=== PATIENT | female | born 1945 | race Caucasian/White ===

== ENCOUNTER 2021-01-24 13:07 | Inpatient (IN) | payer OTHER, SELFPAY ==
[~2021-01-24] VITALS: Ht 162.6 cm; Wt 58.1 kg
[2021-01-24 13:15] VITALS: BP_SYST 129
--- NOTE | 2021-01-24 13:15 | NUR ---
PT TO BED 3 FOR EVALUATION.
--- NOTE | 2021-01-24 13:20 | NUR ---
Pt bib EMS from home with c/o n/v and generalized weakness x4 days. Denies any fever, SOB or chest pain at this time. V/S stable, no acute distress noted.
--- NOTE | 2021-01-24 13:30 | NUR ---
ER Dr. Luther at bedside examining patient.
--- NOTE | 2021-01-24 14:30 | NUR ---
Lab at bedside for blood draw.
[2021-01-24 14:54] LABS: BASOPHILS # (AUTO) 0.1 K/uL (0.0-0.2); BASOPHILS % (AUTO) 0.5 % (0.0-2.0); HEMOGLOBIN 14.3 g/dL (12.0-16.0); LYMPHOCYTES # (AUTO) 0.5 K/uL (1.0-5.5); LYMPHOCYTES % (AUTO) 4.2 % (20.5-51.5); MEAN CORPUSCULAR HEMOGLOBIN 30 pg (27-31); MEAN CORPUSCULAR HGB CONC 34 % (32-36); MEAN CORPUSCULAR VOLUME 88 fL (79.0-98.0); MONOCYTES # (AUTO) 0.5 K/uL (0.0-1.0); MONOCYTES % (AUTO) 3.7 % (1.7-9.3); NEUTROPHILS # (AUTO) 11.4 K/uL (1.8-7.7); NEUTROPHILS % (AUTO) 91.6 % (40.0-70.0); PLATELET COUNT (AUTO) 302 K/uL (130-430); RED BLOOD CELL COUNT(AUTO) 4.75 MIL/uL (4.2-6.2); RED CELL DISTRIBUTION WIDTH 15.8 % (9.0-15.0); WHITE BLOOD COUNT (AUTO) 12.5 K/uL (4.8-10.8)
[2021-01-24 14:58] LABS: ANION GAP 10 (5-15); CALCIUM 9.1 mg/dL (8.4-11.0); CHLORIDE 91 mmol/L (98-107); CREATININE 0.59 mg/dL (0.55-1.30); GLUCOSE 134 mg/dL (70-99); POTASSIUM 3.8 mmol/L (3.5-5.1); SODIUM SERUM 129 mmol/L (136-145); UREA NITROGEN, BLOOD 13 mg/dL (8-21)
[2021-01-24 15:07] LABS: ALANINE AMINOTRANSFERASE 42 U/L (12-78); ALBUMIN 3.9 g/dL (3.4-4.8); ASPARTATE AMINOTRANSFERASE 51 U/L (10-37); LIPASE 73 U/L (73-393); TOTAL BILIRUBIN 1.2 mg/dL (0.0-1.0)
[2021-01-24] MEDS ORDERED: ONDANSETRON HCL 4 MG/2 ML VIAL IVP ONE (15:45)
[2021-01-24] MEDS ORDERED: NS 500 ML IV ONE ×2 (16:00→20:15)
--- NOTE | 2021-01-24 16:10 | NUR ---
Patient transported to radiology via wheelchair, accompanied by staff.
[2021-01-24 16:15] LABS: INR 1.1 (0.8-1.2); PROTHROMBIN TIME 11.4 SECS (9.5-12.5)
--- NOTE | 2021-01-24 16:30 | NUR ---
Pt transfered to hospital bed, will be admitted and held in ER until beds are available.
[2021-01-24] MEDS ORDERED: PROCHLORPERAZINE EDISYLATE 10 MG/2 ML VIAL ONE (16:43)
[2021-01-24] MEDS ORDERED: PROCHLORPERAZINE EDISYLATE 10 MG/2 ML VIAL IVP ONE (16:45)
[2021-01-24 16:52] LABS: BILIRUBIN,URINE NEGATIVE (NEGATIVE); BLOOD, URINE 1+ (NEGATIVE); CLARITY/URINE CLEAR (CLEAR); COLOR,URINE YELLOW (YELLOW); GLUCOSE,URINE NEGATIVE (NEGATIVE); KETONES,URINE 2+ (NEGATIVE); LEUKOCYTE ESTERASE ,URINE NEGATIVE (NEGATIVE); NITRITE, URINE NEGATIVE (NEGATIVE); PROTEIN URINE NEGATIVE (NEGATIVE); UROBILINOGEN,URINE 0.2 (0.2-1.0)
[2021-01-24 17:03] LABS: BACTERIA,URINE FEW /HPF (None Seen); RBC,URINE 0-3 /HPF (0-3); WBC,URINE NONE SEEN /HPF (0-3)
[2021-01-24 17:04] LABS: MUCUS,URINE None Seen /LPF (None Seen)
--- NOTE | 2021-01-24 17:15 | NUR ---
Called dietary to request dinner tray for patient
[2021-01-24] MEDS ORDERED: KCL 20 mEq in D5NS 1000 mL 1,000 ML IV ONE (19:15)
[2021-01-24] MEDS ORDERED: ESCI20TA PO (19:19)
[2021-01-24] MEDS ORDERED: ZOLP5TAB2 PO (19:19)
[2021-01-24] MEDS ORDERED: DONE10TA44 PO (19:19)
[2021-01-24] MEDS ORDERED: MEMA10TA PO (19:19)
[2021-01-24] MEDS ORDERED: GABA-529 PO (19:19)
[2021-01-24] MEDS ORDERED: CALC-823 PO (19:19)
[2021-01-24] MEDS ORDERED: LEVO75TA7 PO (19:19)
[2021-01-24] MEDS ORDERED: APIX5TAB4 PO (19:19)
[2021-01-24] MEDS ORDERED: METO25TA3 PO (19:19)
[2021-01-24] MEDS ORDERED: ALPR0.25 PO (19:19)
--- NOTE | 2021-01-24 19:22 | NUR ---
Medication reconciliation completed with information provided by Pt's sister Helena. Any prior medication reconciliation on file was reviewed and corrected.
--- NOTE | 2021-01-24 19:23 | NUR ---
Belongings list completed.
--- NOTE | 2021-01-24 19:29 | NUR ---
Care of patient endorsed to GREG James. Pt currently resting in bed, no acute distress noted
--- NOTE | 2021-01-24 19:30 | NUR ---
Received report from Karolina GARZA.
--- NOTE | 2021-01-24 20:00 | NUR ---
Pt accidentally removed PIV. Bleeding controlled and bandaged.
--- NOTE | 2021-01-24 20:10 | NUR ---
# 20 gauge angiocath placed to RAC. Use of asceptic technique. Opsite placed over site. Blood return noted. Flushed with 10 cc of normal saline. No evidence of infiltration noted. Patient tolerated well.
--- NOTE | 2021-01-24 21:00 | NUR ---
Pt given two juices.
[2021-01-24] MEDS ORDERED: KCL 20 mEq in NS 1000 mL 1,000 ML IV ONE (21:03)
--- NOTE | 2021-01-24 21:18 | NUR ---
Patient's code status is FULL CODE paperwork completed and placed in chart.
[2021-01-24] MEDS ORDERED: ZOLPIDEM TARTRATE 5 MG TABLET ONE (21:52)
[2021-01-24 22:00] VITALS: BP_SYST 138
--- NOTE | 2021-01-24 22:20 | NUR ---
Transfer to [facility]. IV present no sign or symptom of infiltration. Report given to Stephan GARZA
--- NOTE | 2021-01-24 22:44 | NUR ---
ADMIT NOTE Received pt from ER to the floor with a diagnosis of ACUTE GASTROENTERITIS. Admission process initiated. patient oriented to pain management, safety and call light-teach back done.
[2021-01-24 23:09] VITALS: BP_SYST 125
[2021-01-24] MEDS: ZOLPIDEM TARTRATE 5 MG TABLET PO SCH (23:29)
--- NOTE | 2021-01-25 | NUR ---
PATIENT IS ASLEEP COOPERATIVE. BREATHING ROOM AIR WITH NO SIGNS OF PAIN OR DISTRESS. BED IS LOW AND CALL LIGHT IN REACH.
[2021-01-25] MEDS ORDERED: ALPRAZolam 0.25 MG TABLET PO PRN (00:15)
[2021-01-25] MEDS ORDERED: ACETAMINOPHEN 650 MG/20.3 ML UDC GT PRN (00:15)
[2021-01-25] MEDS ORDERED: ZOLPIDEM TARTRATE 5 MG TABLET PO PRN (00:15)
[2021-01-25] MEDS ORDERED: metroNIDAZOLE 500 mg/NS 100 ML IV SCH (00:15)
[2021-01-25] MEDS ORDERED: VANCOMYCIN HCL 1 GM/NS PREMIX 250 ML IV ONE (00:30)
[2021-01-25] MEDS ORDERED: metroNIDAZOLE 500 mg/NS 100 ML IV ONE (01:30)
[2021-01-25] MEDS ORDERED: VANCOMYCIN HCL 1000 MG/VIAL IV ONE (01:30)
--- NOTE | 2021-01-25 03:28 | NUR ---
CONSULTATION PAGED/CALLED Reason for Consultation: CELLULITIS OF FACE Person Who was Notified: MANDY Consulting Physician: ANG[employer] Specialty: Ordering Physician: TERRY
--- NOTE | 2021-01-25 04:00 | NUR ---
PATIENT RESTING COMFORTABLE NO SIGNS OF PAIN OR DISTRESS. BEDS LOW AND CALL LIGHTS IN REACH.
--- NOTE | 2021-01-25 06:25 | NUR ---
CLOSING NOTE PATIENT TRANSFERRED IN FROM ER LAST NIGHT FOR GENERALIZED WEAKNESS, ACUTE ABDOMINAL PAIN, AND 3 EPISODES OF VOMITING YESTERDAY. PATIENT HAS WOUNDS ON BOTH FACIAL CHEEKS REPORTS FROM [employer] WHEN SHE WAS IN [place] IN CHART. IV SITE LOCATION LFA 20 GAUGE. PATIENTS RESTING ASLEEP COMFORTABLE BREATHING ROOM AIR IN NO DISTRESS OR PAIN AT THIS TIME. BED IS LOW AND CALL LIGHTS IN REACH.
--- NOTE | 2021-01-25 08:00 | NUR ---
AM NOTES AMBULATORY, DENIES PAIN, TOLERATED DIET WELL.
[2021-01-25] MEDS ORDERED: NON-FORMULARY MEDICATION (Apixaban (Eliquis) 5 MG) PO SCH (09:00)
[2021-01-25] MEDS ORDERED: ESCITALOPRAM OXALATE 10 MG TABLET PO SCH (09:00)
[2021-01-25 10:10] VITALS: BP_SYST 118
[2021-01-25] MEDS: CITALOPRAM HYDROBROMIDE 20 MG TABLET PO SCH (10:29)
[2021-01-25] MEDS: APIXABAN 2.5 MG TABLET PO SCH ×2 (10:30→21:32)
[2021-01-25] MEDS: MEMANTINE HCL 5 MG TABLET PO SCH ×2 (10:31→21:36)
[2021-01-25] MEDS: LEVOTHYROXINE SODIUM 0.075 MG TABLET PO SCH (10:32)
[2021-01-25] MEDS: GABAPENTIN 100 MG CAPSULE PO SCH ×2 (10:32→21:30)
[2021-01-25] MEDS: CALCIUM CARBONATE/VITAMIN D3 1 TAB TABLET PO SCH (10:32)
[2021-01-25] MEDS: METOPROLOL SUCCINATE 25 MG TAB.SR.24H (TOPROL XL) PO SCH ×2 (10:33→21:36)
[2021-01-25] MEDS: metroNIDAZOLE 500 mg/NS 100 ML IV SCH ×2 (10:34→17:45)
[2021-01-25] MEDS ORDERED: VANCOMYCIN HCL 750 MG in NS 250 ML IV SCH (14:00)
--- NOTE | 2021-01-25 19:42 | NUR ---
NOTES SEEN BY GABY AND DR PAYNE TODAY, CONTINUE WITH IV ABT.
[2021-01-25 20:00] VITALS: BP_SYST 134
--- NOTE | 2021-01-25 20:00 | NUR ---
INITIAL NOTES: PT IS ALERT AND ORIENTED AT THIS TIME ; NOT IN ANY ACUTE DISTRESS; VITALS ARE STABLE ; ASSESSMENT DONE ; BED IN LOW AND LOCK POSITION , CALL KAUR IN REACH ; EDUCATED PT TO CALL FOR ASSIST ;WILL CONTINUE TO MONITOR PT .
[2021-01-25] MEDS ORDERED: ZOLPIDEM TARTRATE 5 MG TABLET PO SCH (21:00)
[2021-01-25] MEDS: DONEPEZIL HCL 5 MG TABLET (ARICEPT) PO SCH (21:31)
[2021-01-25] MEDS: ZOLPIDEM TARTRATE 5 MG TABLET PO SCH (21:31)
--- NOTE | 2021-01-25 21:39 | NUR ---
MEDICATION: DUE MEDS GIVEN PER ORDER , EDUCATED PT ABOUT HER MEDICATION , NOTICED THAT PT IS SLIGHTLY FORGETFUL ; ASSISTED PT TO RESTROOM , PT VOIDED , ASSISTANCE PT BACK TO BED ; ALL NEEDS ATTENDED ; CALL KAUR IN REACH ; ENCOURAGED PT TO CALL FOR ASSIST; BED ALARM IS ON
--- NOTE | 2021-01-25 22:34 | NUR ---
PAGED: PT C/O HEADACHE , PAGED TO GET ORDER
--- NOTE | 2021-01-25 22:58 | NUR ---
CALLED BACK ; DR ROBLEDO CALLED BACK , NOTIFIED MD THAT PT IS C/O HEADACHE , PT REQUESTING FOR TYLENOL , ORDERED TYLENOL 650 MG PO Q6HRS PRN FOR MILD PAIN . ORDER ENTERED .
[2021-01-26 00:40] VITALS: BP_SYST 134
--- NOTE | 2021-01-26 00:40 | NUR ---
RN NOTES: PT IS SLEEPING , RESPIRATION IS EVEN AND NON LABORED ; PT IS EASILY AROUSABLE ; ASSISTED PT TO RESTROOM , PT VOIDED , ASSISTED PT BACK TO BED ; VITALS ARE STABLE ; WILL CONTINUE TO MONITOR PT.
[2021-01-26] MEDS: metroNIDAZOLE 500 mg/NS 100 ML IV SCH ×3 (02:27→17:38)
[2021-01-26] MEDS: ACETAMINOPHEN 325 MG TABLET PO PRN (02:28)
--- NOTE | 2021-01-26 04:20 | NUR ---
RN NOTES: PT IS SLEEPING , RESPIRATION IS EVEN AND NON LABORED ;WILL CONTINUE TO MONITOR PT.
--- NOTE | 2021-01-26 07:25 | NUR ---
CLOSING NOTES: PT IS AWAKE ,REPORT GIVEN TO RN AT BEDSIDE ; ALL NEEDS ATTENDED .
--- NOTE | 2021-01-26 07:35 | NUR ---
OPENING NOTES: RECEIVED REPORT FROM ASSISTANT COUNTY ENGINEER NURSE. PATIENT IS AWAKE LAYING DOWN IN BED. TOLERATED 1L VIA NASAL CANNULA WITH NO DISTRESS NOTED. IV LINE PATENT AND INTACT WITH NO INFILTRATION NOTED. PATIENT STABLE AT THIS TIME. SAFETY, FALL, AND ASPIRATION PRECAUTIONS ARE IN PLACE. BED LOCKED IN LOWEST POSITION AND CALL LIGHT IN REACH. WILL CONTINUE TO MONITOR PATIENT FOR ANY CHANGES. Addendum: 01/26/21 at 0751 by Drake Hastings RN PATIENT IS ON ROOM AIR WITH NO DISTRESS NOTED.
[2021-01-26 08:00] VITALS: BP_SYST 140
[2021-01-26 08:22] LABS: BASOPHILS # (AUTO) 0.1 K/uL (0.0-0.2); BASOPHILS % (AUTO) 1.3 % (0.0-2.0); EOSINOPHILS # (AUTO) 0.2 K/uL (0.0-0.4); EOSINOPHILS % (AUTO) 3.4 % (0.0-4.0); HEMATOCRIT 34.6 % (36-48); HEMOGLOBIN 11.8 g/dL (12.0-16.0); LYMPHOCYTES # (AUTO) 1.3 K/uL (1.0-5.5); MEAN CORPUSCULAR HEMOGLOBIN 30 pg (27-31); MEAN CORPUSCULAR HGB CONC 34 % (32-36); MEAN CORPUSCULAR VOLUME 89 fL (79.0-98.0); MONOCYTES # (AUTO) 0.7 K/uL (0.0-1.0); MONOCYTES % (AUTO) 12.5 % (1.7-9.3); NEUTROPHILS # (AUTO) 3.1 K/uL (1.8-7.7); NEUTROPHILS % (AUTO) 57.8 % (40.0-70.0); PLATELET COUNT (AUTO) 248 K/uL (130-430); RED BLOOD CELL COUNT(AUTO) 3.87 MIL/uL (4.2-6.2); RED CELL DISTRIBUTION WIDTH 16.3 % (9.0-15.0); WHITE BLOOD COUNT (AUTO) 5.4 K/uL (4.8-10.8)
[2021-01-26 08:54] LABS: ALANINE AMINOTRANSFERASE 28 U/L (12-78); ALBUMIN 2.7 g/dL (3.4-4.8); ANION GAP 7 (5-15); ASPARTATE AMINOTRANSFERASE 22 U/L (10-37); CALCIUM 8.4 mg/dL (8.4-11.0); CHLORIDE 101 mmol/L (98-107); CREATININE 0.54 mg/dL (0.55-1.30); GLUCOSE 101 mg/dL (70-99); POTASSIUM 3.4 mmol/L (3.5-5.1); SODIUM SERUM 135 mmol/L (136-145); TOTAL BILIRUBIN 0.6 mg/dL (0.0-1.0); UREA NITROGEN, BLOOD 8 mg/dL (8-21)
[2021-01-26] MEDS: GABAPENTIN 100 MG CAPSULE PO SCH ×2 (09:27→21:32)
[2021-01-26] MEDS: CALCIUM CARBONATE/VITAMIN D3 1 TAB TABLET PO SCH (09:27)
[2021-01-26] MEDS: METOPROLOL SUCCINATE 25 MG TAB.SR.24H (TOPROL XL) PO SCH ×2 (09:27→21:32)
[2021-01-26] MEDS: CITALOPRAM HYDROBROMIDE 20 MG TABLET PO SCH (09:28)
[2021-01-26] MEDS: LEVOTHYROXINE SODIUM 0.075 MG TABLET PO SCH (09:28)
[2021-01-26] MEDS: MEMANTINE HCL 5 MG TABLET PO SCH ×2 (09:28→21:30)
[2021-01-26] MEDS: APIXABAN 2.5 MG TABLET PO SCH ×2 (09:28→21:31)
--- NOTE | 2021-01-26 11:43 | NUR ---
DR. PAYNE ADVANCE DIET TO REGULAR. PATIENT IS AWARE.
[2021-01-26 12:00] VITALS: BP_SYST 132
[2021-01-26] MEDS: VANCOMYCIN HCL 750 MG/NS 250 ML IV SCH ×2 (14:15→21:34)
[2021-01-26] MEDS ORDERED: POTASSIUM CHLORIDE 20 MEQ TAB.PRT.SR PO ONE (14:15)
--- NOTE | 2021-01-26 14:50 | NUR ---
PATIENT POTASSIUM IS 3.4 DR. PAYNE ORDERED POTASSIUM CHLORIDE 20 MEQ PO ONCE.
[2021-01-26 16:00] VITALS: BP_SYST 130
--- NOTE | 2021-01-26 18:25 | NUR ---
CLOSING NOTES: PATIENT IS AWAKE LAYING DOWN IN BED. TOLERATED ON ROOM WITH NO DISTRESS NOTED. IV LINE PATENT AND INTACT WITH NO INFILTRATION NOTED. PATIENT STABLE AT THIS TIME. SAFETY, FALL, AND ASPIRATION PRECAUTIONS ARE IN PLACE. BED LOCKED IN LOWEST POSITION AND CALL LIGHT IN REACH. WILL ENDORSE PATIENT CARE TO ONCOMING CAR GREASER NURSE.
[2021-01-26 20:00] VITALS: BP_SYST 138
[2021-01-26] MEDS: ZOLPIDEM TARTRATE 5 MG TABLET PO SCH (21:32)
[2021-01-26] MEDS: DONEPEZIL HCL 5 MG TABLET (ARICEPT) PO SCH (21:33)
[2021-01-27 00:33] VITALS: BP_SYST 151
[2021-01-27] MEDS: metroNIDAZOLE 500 mg/NS 100 ML IV SCH ×3 (02:19→17:07)
--- NOTE | 2021-01-27 04:12 | NUR ---
RN NOTES; PT CALLED , ASSISTED PT TO RESTROOM , PT VOIDED ; PT REFUSED TO PUT BED ALARM BACK ON . WILL MONITOR PT .
[2021-01-27 05:00] VITALS: BP_SYST 144
[2021-01-27 06:32] LABS: BASOPHILS # (AUTO) 0.1 K/uL (0.0-0.2); BASOPHILS % (AUTO) 1.9 % (0.0-2.0); EOSINOPHILS # (AUTO) 0.3 K/uL (0.0-0.4); HEMATOCRIT 39.6 % (36-48); HEMOGLOBIN 13.3 g/dL (12.0-16.0); LYMPHOCYTES # (AUTO) 1.3 K/uL (1.0-5.5); LYMPHOCYTES % (AUTO) 22.9 % (20.5-51.5); MEAN CORPUSCULAR HEMOGLOBIN 30 pg (27-31); MEAN CORPUSCULAR HGB CONC 34 % (32-36); MEAN CORPUSCULAR VOLUME 90 fL (79.0-98.0); MONOCYTES # (AUTO) 0.6 K/uL (0.0-1.0); MONOCYTES % (AUTO) 10.6 % (1.7-9.3); NEUTROPHILS # (AUTO) 3.5 K/uL (1.8-7.7); NEUTROPHILS % (AUTO) 59.6 % (40.0-70.0); PLATELET COUNT (AUTO) 317 K/uL (130-430); RED BLOOD CELL COUNT(AUTO) 4.42 MIL/uL (4.2-6.2); RED CELL DISTRIBUTION WIDTH 16.5 % (9.0-15.0); WHITE BLOOD COUNT (AUTO) 5.9 K/uL (4.8-10.8)
--- NOTE | 2021-01-27 06:46 | NUR ---
CLOSING NOTES: PT IS AWAKE , NOT IN ANY ACUTE DISTRESS ; PT REFUSED BED ALARM ,ENCOURAGED PT TO CALL FOR ASSIST; ALL NEEDS ATTENDED ; WILL CONTINUE TO MONITOR AND WILL ENDORSE TO NEXT SHIFT NURSE.
[2021-01-27 06:58] LABS: ALANINE AMINOTRANSFERASE 32 U/L (12-78); ALBUMIN 3.3 g/dL (3.4-4.8); ANION GAP 6 (5-15); ASPARTATE AMINOTRANSFERASE 26 U/L (10-37); CALCIUM 8.8 mg/dL (8.4-11.0); CHLORIDE 97 mmol/L (98-107); CREATININE 0.55 mg/dL (0.55-1.30); GLUCOSE 103 mg/dL (70-99); POTASSIUM 3.2 mmol/L (3.5-5.1); SODIUM SERUM 134 mmol/L (136-145); TOTAL BILIRUBIN 0.5 mg/dL (0.0-1.0); UREA NITROGEN, BLOOD 12 mg/dL (8-21)
--- NOTE | 2021-01-27 07:22 | NUR ---
OPENING NOTES: RECEIVED REPORT FROM REGIONAL TRANSFER LIAISON NURSE. PATIENT IS AWAKE LAYING DOWN IN BED. TOLERATED OXYGEN ON ROOM AIR WITH NO DISTRESS NOTED. IV LINE PATENT AND INTACT WITH NO INFILTRATION NOTED. PATIENT STABLE AT THIS TIME. SAFETY, FALL, AND ASPIRATION PRECAUTIONS ARE IN PLACE. BED LOCKED IN LOWEST POSITION AND CALL LIGHT IN REACH. WILL CONTINUE TO MONITOR PATIENT FOR ANY CHANGES.
[2021-01-27 08:00] VITALS: BP_SYST 160
[2021-01-27] MEDS: CITALOPRAM HYDROBROMIDE 20 MG TABLET PO SCH (09:13)
[2021-01-27] MEDS: GABAPENTIN 100 MG CAPSULE PO SCH ×2 (09:13→21:29)
[2021-01-27] MEDS: CALCIUM CARBONATE/VITAMIN D3 1 TAB TABLET PO SCH (09:14)
[2021-01-27] MEDS: METOPROLOL SUCCINATE 25 MG TAB.SR.24H (TOPROL XL) PO SCH ×2 (09:14→21:15)
[2021-01-27] MEDS: LEVOTHYROXINE SODIUM 0.075 MG TABLET PO SCH (09:14)
[2021-01-27] MEDS: APIXABAN 2.5 MG TABLET PO SCH ×2 (09:15→21:15)
[2021-01-27] MEDS: MEMANTINE HCL 5 MG TABLET PO SCH ×2 (09:23→21:13)
[2021-01-27] MEDS: VANCOMYCIN HCL 750 MG/NS 250 ML IV SCH ×2 (10:58→21:12)
[2021-01-27 12:00] VITALS: BP_SYST 148
[2021-01-27] MEDS ORDERED: POTASSIUM CHLORIDE 20 MEQ/PKT PACKET PO ONE (15:30)
[2021-01-27] MEDS ORDERED: FAMOTIDINE 20 MG TABLET PO ONE (15:30)
[2021-01-27 16:00] VITALS: BP_SYST 142
[2021-01-27] MEDS: CALCIUM CARBONATE 500 MG/ TAB.CHEW PO SCH ×2 (17:06→21:31)
--- NOTE | 2021-01-27 18:35 | NUR ---
CLOSING NOTES: PATIENT IS AWAKE LAYING DOWN IN BED. TOLERATED ON ROOM WITH NO DISTRESS NOTED. IV LINE PATENT AND INTACT WITH NO INFILTRATION NOTED. PATIENT STABLE AT THIS TIME. SAFETY, FALL, AND ASPIRATION PRECAUTIONS ARE IN PLACE. BED LOCKED IN LOWEST POSITION AND CALL LIGHT IN REACH. WILL ENDORSE PATIENT CARE TO ONCOMING A[employer]ICAN STUDIES PROFESSOR NURSE.
--- NOTE | 2021-01-27 19:30 | NUR ---
CHANGE OF SHIFT; endorsed by day shift. n distress. pt. ambulates to thy restroom.bed low position, call light within reach.
[2021-01-27 20:00] VITALS: BP_SYST 128
[2021-01-27] MEDS: ZOLPIDEM TARTRATE 5 MG TABLET PO SCH (21:13)
[2021-01-27] MEDS: DONEPEZIL HCL 5 MG TABLET (ARICEPT) PO SCH (21:14)
--- NOTE | 2021-01-27 21:30 | NUR ---
NOTES: due medications given. IV lock on tr. forearm. ambulates to the restroom. denies any pain. repositioned self. on room air.
[2021-01-28 00:45] VITALS: BP_SYST 131
--- NOTE | 2021-01-28 02:03 | NUR ---
NOTES: pt. been sleeping. no distress.
[2021-01-28] MEDS: metroNIDAZOLE 500 mg/NS 100 ML IV SCH ×3 (02:39→17:38)
--- NOTE | 2021-01-28 03:00 | NUR ---
NOTES: pt. awake, just went to the restroom. no further complaints. IV antibiotic still infusing.
--- NOTE | 2021-01-28 06:26 | NUR ---
CLOSING NOTES; pt. checked, still sleeping. IV tko for now. for further care and assistance. call ligth at bedside. will endorse to incoming shift.
[2021-01-28 07:00] VITALS: BP_SYST 127
[2021-01-28 07:32] LABS: BASOPHILS # (AUTO) 0.1 K/uL (0.0-0.2); BASOPHILS % (AUTO) 1.3 % (0.0-2.0); EOSINOPHILS # (AUTO) 0.3 K/uL (0.0-0.4); EOSINOPHILS % (AUTO) 5.6 % (0.0-4.0); HEMATOCRIT 38.1 % (36-48); HEMOGLOBIN 12.9 g/dL (12.0-16.0); LYMPHOCYTES # (AUTO) 1.3 K/uL (1.0-5.5); LYMPHOCYTES % (AUTO) 24.2 % (20.5-51.5); MEAN CORPUSCULAR HEMOGLOBIN 30 pg (27-31); MEAN CORPUSCULAR HGB CONC 34 % (32-36); MEAN CORPUSCULAR VOLUME 90 fL (79.0-98.0); MONOCYTES # (AUTO) 0.6 K/uL (0.0-1.0); MONOCYTES % (AUTO) 11.9 % (1.7-9.3); NEUTROPHILS # (AUTO) 3.1 K/uL (1.8-7.7); PLATELET COUNT (AUTO) 304 K/uL (130-430); RED BLOOD CELL COUNT(AUTO) 4.24 MIL/uL (4.2-6.2); RED CELL DISTRIBUTION WIDTH 16.5 % (9.0-15.0); WHITE BLOOD COUNT (AUTO) 5.4 K/uL (4.8-10.8)
[2021-01-28 08:00] VITALS: BP_SYST 127
--- NOTE | 2021-01-28 08:00 | NUR ---
NURSE REPORT REPORT OBTAINED FROM NIGHT NURSE LIZ AT 0720 AND THIS NURSE ASSUMED CARE OF PATIENT. RECEIVED PATIENT ASLEEP AT BEGINNING OF SHIFT. VSS. BRANDINEB.
[2021-01-28] MEDS: METOPROLOL SUCCINATE 25 MG TAB.SR.24H (TOPROL XL) PO SCH ×2 (09:24→20:30)
[2021-01-28] MEDS: CITALOPRAM HYDROBROMIDE 20 MG TABLET PO SCH (09:25)
[2021-01-28] MEDS: FAMOTIDINE 20 MG TABLET PO SCH (09:25)
[2021-01-28] MEDS: GABAPENTIN 100 MG CAPSULE PO SCH ×2 (09:26→20:29)
[2021-01-28] MEDS: CALCIUM CARBONATE 500 MG/ TAB.CHEW PO SCH ×4 (09:26→20:29)
[2021-01-28] MEDS: APIXABAN 2.5 MG TABLET PO SCH ×2 (09:26→20:33)
[2021-01-28] MEDS: MEMANTINE HCL 5 MG TABLET PO SCH ×2 (09:26→20:29)
[2021-01-28] MEDS: CALCIUM CARBONATE/VITAMIN D3 1 TAB TABLET PO SCH (09:27)
[2021-01-28] MEDS: VANCOMYCIN HCL 750 MG/NS 250 ML IV SCH ×2 (09:34→21:52)
[2021-01-28 10:23] LABS: CHLORIDE 100 mmol/L (98-107); SODIUM SERUM 134 mmol/L (136-145)
[2021-01-28 10:24] LABS: ANION GAP 6 (5-15); CALCIUM 9.4 mg/dL (8.4-11.0); CREATININE 0.61 mg/dL (0.55-1.30); GLUCOSE 107 mg/dL (70-99); PHOSPHORUS 4.1 mg/dL (2.7-4.5); UREA NITROGEN, BLOOD 18 mg/dL (8-21)
[2021-01-28] MEDS: LEVOTHYROXINE SODIUM 0.075 MG TABLET PO SCH (10:28)
[2021-01-28 12:00] VITALS: BP_SYST 148
[2021-01-28] MEDS: ACETAMINOPHEN 325 MG TABLET PO PRN ×2 (12:00→17:37)
--- NOTE | 2021-01-28 12:00 | NUR ---
NURSE CARE MEDICATED WITH ACETAMINOPHEN 650 MG PO FOR HEADACHE WITH SLIGHT RESULT. VSS. AFEB. RECEIVED IVPB FLAGYL AND VANCO
[2021-01-28] MEDS: ACETAMINOPHEN 650 MG/20.3 ML UDC GT PRN (12:06)
[2021-01-28 16:00] VITALS: BP_SYST 142
--- NOTE | 2021-01-28 16:00 | NUR ---
NURSE CARE VSS. AFEB. C/O HEADACHE BUT TYLENOL NOT DUE YET. POSSIBLE LACK OF SLEEP. FACE STILL WITH REDNESS ON FACE. PATIENT STATED THAT MD CAME IN WHILE SHE WAS IN THE BATHROOM. NOT ABLE TO SPEAK WITH HIM. ANOTHER MD CALLED THIS NURSE AND THIS MD NEVER SAW PATIENT. TRIED TO PAGE MD TO COME BACK TO TALK TO PATIENT. MD DIDN'T RETURN PAGE OR COME BACK.
--- NOTE | 2021-01-28 20:00 | NUR ---
CHANGE OF SHIFT; endorsed by day shift. no distress.
--- NOTE | 2021-01-28 20:12 | NUR ---
NURSE REPORT AND ENDORSEMENT REPORT GIVEN TO NIGHT NURSE FAZAL TO ASSUME CARE OF PATIENT. SBAR GIVEN AND ALL QUESTIONS ANSWERED
[2021-01-28 20:30] VITALS: BP_SYST 132
--- NOTE | 2021-01-28 20:30 | NUR ---
NOTES: pt. ambulates to the restroom. VS checked. IV lock on rt. forearm. no complaints noted.
[2021-01-28] MEDS: ZOLPIDEM TARTRATE 5 MG TABLET PO SCH (21:51)
[2021-01-28] MEDS: DONEPEZIL HCL 5 MG TABLET (ARICEPT) PO SCH (21:51)
--- NOTE | 2021-01-28 22:00 | NUR ---
NOTES: due IV antibiotic started. due po medications given including sleeping pill. pt. goes to restroom frequently without assist.
[2021-01-29 00:30] VITALS: BP_SYST 134
--- NOTE | 2021-01-29 02:30 | NUR ---
NOTES: condition unchanged. another IV antibiotic given. needs attended.
[2021-01-29] MEDS: metroNIDAZOLE 500 mg/NS 100 ML IV SCH ×3 (02:37→18:22)
--- NOTE | 2021-01-29 06:30 | NUR ---
CLOSING NOTES; py. can asleep. IV tko. no complaints noted all night. been using and ambulates to the restroom. for further care and assist. will endorse to incoming shift.
[2021-01-29 08:30] VITALS: BP_SYST 109
[2021-01-29] MEDS: CITALOPRAM HYDROBROMIDE 20 MG TABLET PO SCH (09:23)
[2021-01-29] MEDS: MEMANTINE HCL 5 MG TABLET PO SCH ×2 (09:23→21:10)
[2021-01-29] MEDS: CALCIUM CARBONATE/VITAMIN D3 1 TAB TABLET PO SCH (09:23)
[2021-01-29] MEDS: FAMOTIDINE 20 MG TABLET PO SCH (09:23)
[2021-01-29] MEDS: GABAPENTIN 100 MG CAPSULE PO SCH ×2 (09:24→21:09)
[2021-01-29] MEDS: METOPROLOL SUCCINATE 25 MG TAB.SR.24H (TOPROL XL) PO SCH ×2 (09:24→21:10)
[2021-01-29] MEDS: APIXABAN 2.5 MG TABLET PO SCH ×2 (09:26→21:11)
[2021-01-29] MEDS: LEVOTHYROXINE SODIUM 0.075 MG TABLET PO SCH (09:30)
[2021-01-29] MEDS: CALCIUM CARBONATE 500 MG/ TAB.CHEW PO SCH ×4 (09:30→21:09)
--- NOTE | 2021-01-29 11:28 | NUR ---
Patient has flagyl IV and vanco IV scheduled at 1000 and 1100. both of them are available in the fridge or Bin. pharmacist, Corby called and they will send them.
[2021-01-29 12:50] VITALS: BP_SYST 146
[2021-01-29] MEDS: ALPRAZolam 0.25 MG TABLET PO PRN (12:52)
[2021-01-29] MEDS: VANCOMYCIN HCL 750 MG/NS 250 ML IV SCH ×2 (13:20→21:09)
[2021-01-29 16:30] VITALS: BP_SYST 111
[2021-01-29 20:00] VITALS: BP_SYST 115
[2021-01-29] MEDS: DONEPEZIL HCL 5 MG TABLET (ARICEPT) PO SCH (21:10)
[2021-01-29] MEDS: ZOLPIDEM TARTRATE 5 MG TABLET PO SCH (21:10)
--- NOTE | 2021-01-29 22:00 | NUR ---
ROUNDING NOTES Patient resting in bed - no s/s pain or distress noted. Respirations even and unlabored - head of bed elevated. IV site patent - no s/s redness, infection, or infiltration. Bed locked and in lowest position - call light within reach.
[2021-01-30] VITALS: BP_SYST 122
[2021-01-30] MEDS: metroNIDAZOLE 500 mg/NS 100 ML IV SCH ×2 (01:30→11:57)
[2021-01-30] MEDS: ACETAMINOPHEN 650 MG/20.3 ML UDC GT PRN (03:00)
[2021-01-30] MEDS: ALPRAZolam 0.25 MG TABLET PO PRN ×2 (03:00→12:03)
[2021-01-30 08:00] VITALS: BP_SYST 144
--- NOTE | 2021-01-30 08:00 | NUR ---
OPENING NOTES ALERT AND ORIENTED. DENIES ANY PAIN. NO SHORTNESS OF BREATH ON ROOM AIR. IV ACCESS INTACT AND PATENT. FALL AND SAFETY CHECKS DONE. CALL LIGHT WITHIN REACH. WILL MONITOR.
[2021-01-30] MEDS: CALCIUM CARBONATE 500 MG/ TAB.CHEW PO SCH ×2 (09:46→12:06)
[2021-01-30] MEDS: CITALOPRAM HYDROBROMIDE 20 MG TABLET PO SCH (09:46)
[2021-01-30] MEDS: GABAPENTIN 100 MG CAPSULE PO SCH (09:46)
[2021-01-30] MEDS: CALCIUM CARBONATE/VITAMIN D3 1 TAB TABLET PO SCH (09:46)
[2021-01-30] MEDS: FAMOTIDINE 20 MG TABLET PO SCH (09:46)
[2021-01-30] MEDS: MEMANTINE HCL 5 MG TABLET PO SCH (09:46)
[2021-01-30] MEDS: METOPROLOL SUCCINATE 25 MG TAB.SR.24H (TOPROL XL) PO SCH (09:47)
[2021-01-30] MEDS: VANCOMYCIN HCL 750 MG/NS 250 ML IV SCH (09:48)
[2021-01-30] MEDS: APIXABAN 2.5 MG TABLET PO SCH (09:48)
[2021-01-30] MEDS: LEVOTHYROXINE SODIUM 0.075 MG TABLET PO SCH (09:57)
[2021-01-30 11:26] VITALS: BP_SYST 131
--- NOTE | 2021-01-30 12:00 | NUR ---
PAIN & ANXIETY COMPLAINED OF HEADACHE AND ANXIETY. PATIENT WANTS TO GO HOME TODAY. WILL MEDICATE.
[2021-01-30] MEDS: ACETAMINOPHEN 325 MG TABLET PO PRN (12:03)
[2021-01-30 15:33] VITALS: BP_SYST 151
[2021-01-30 15:38] VITALS: BP_SYST 151
--- NOTE | 2021-01-30 16:07 | NUR ---
D/C Patient Patient given medication reconciliation form and D/C instructions. Exit Care provided. Patient verbalized understanding. MD discussed with patient the results and treatment provided. Ambulatory with steady gait for discharge to home. Patient in stable condition, ID band removed. IV catheter removed, intact and dressing applied, no active bleeding. Rx of Doxycycline given. Patient educated on pain management. All belongings sent with patient.
== END 2021-01-30 16:10 | disposition home or self-care (01) | DRG 603 ==
LOC: SED 13:07 → SMU 19:03
PROVIDERS: ADMIT Family Medicine; ATTEND Family Medicine
DX: L03.211 Cellulitis of face (principal); N39.0 Urinary tract infection, site not specified; E87.1 Hypo-osmolality and hyponatremia; E85.9 Amyloidosis, unspecified; K52.9 Noninfective gastroenteritis and colitis, unspecified; F03.90 Unspecified dementia, unspecified severity, without behavioral disturbance, psychotic disturbance, mood disturbance, and anxiety; E03.9 Hypothyroidism, unspecified; M19.90 Unspecified osteoarthritis, unspecified site; Z20.822 Contact with and (suspected) exposure to COVID-19; F32.9 Major depressive disorder, single episode, unspecified; M46.46 Discitis, unspecified, lumbar region; Z88.0 Allergy status to penicillin; Z79.890 Hormone replacement therapy; Z79.899 Other long term (current) drug therapy; Z85.3 Personal history of malignant neoplasm of breast
CPT/HCPCS: 36415; 71045; 76376; 80048; 80053; 80202; 81000; 83605; 83690; 83735; 84100; 84484; 85025; 85610-TC; 85651-TC; 85730-TC; 86140; 87040-TC; 87086; 93005; 96361; 96365; 96375; 99285; J0780; J2405; J3370; J3480; J3490; J7050